=== PATIENT | female | born 1945 | race Caucasian/White ===

== ENCOUNTER 2019-11-25 18:24 | Observation (INO) | payer MEDICARE ==
[2019-11-25] MEDS ORDERED: SODIUM CHLORIDE 0.9% 1,000 ML IV STA (18:28)
--- NOTE | 2019-11-25 18:44 | ED ---
Weakness HPI - General Chief complaint: Weakness Stated complaint: Weakness Time Seen by Provider: 11/25/19 18:27 Source: patient, RN notes reviewed, old records reviewed Mode of arrival: wheelchair Limitations: no limitations - History of Present Illness Initial comments: This is a 74-year-old female DF for evaluation of weakness. Patient is very depressed questioning, states that she is no longer wants to live she syncopal his Lasix sick feeling sick. Patient has not been feeling well for quite some time she blames it on being taken off her Neurontin. MD Complaint: generalized weakness, lack of energy -: days(s) Location: generalized Severity: moderate Severity scale (1-10): 4 Consistency: constant Improves with: none Worsens with: none Context: history of similar, depression Associated Symptoms: denies other symptoms - Related Data Home Medications Medication Instructions Recorded Confirmed Allopurinol [Zyloprim] 100 mg PO BID 11/25/19 11/25/19 Cinacalcet HCl [Sensipar] 30 mg PO DAILY 11/25/19 11/25/19 Ergocalciferol (Vitamin D2) 50,000 unit PO FR 11/25/19 11/25/19 [Drisdol] Garlic 1 tab PO DAILY 11/25/19 11/25/19 Levothyroxine Sodium [Synthroid] 88 mcg PO MOTUWETHFRSA 11/25/19 11/25/19 Linagliptin [Tradjenta] 5 mg PO DAILY 11/25/19 11/25/19 Magnesium Oxide [Magox 400] 400 mg PO DAILY 11/25/19 11/25/19 NIFEdipine [NIFEdipine ER] 60 mg PO DAILY 11/25/19 11/25/19 Pantoprazole [Protonix] 40 mg PO DAILY 11/25/19 11/25/19 Allergies Allergy/AdvReac Type Severity Reaction Status Date / Time acetaminophen Allergy Unknown Verified 11/25/19 20:29 [From Tylenol-Codeine #3] codeine Allergy Unknown Verified 11/25/19 20:29 [From Tylenol-Codeine #3] Review of Systems ROS Statement: Those systems with pertinent positive or pertinent negative responses have been documented in the HPI. ROS Other: All systems not noted in ROS Statement are negative. Past Medical History Past Medical History: Diabetes Mellitus, Hyperlipidemia, Hypertension Additional Past Medical History / Comment(s): parathyroid, gout, osteopenia, diverticulosis Past Surgical History: Appendectomy, Cholecystectomy, Joint Replacement Additional Past Surgical History / Comment(s): L hip, L knee Past Psychological History: No Psychological Hx Reported Smoking Status: Former smoker Past Alcohol Use History: None Reported Past Drug Use History: None Reported General Exam Limitations: no limitations General appearance: alert, in no apparent distress Head exam: Present: atraumatic, normocephalic, normal inspection Eye exam: Present: normal appearance, PERRL, EOMI. Absent: scleral icterus, conjunctival injection, periorbital swelling ENT exam: Present: normal exam, mucous membranes moist Neck exam: Present: normal inspection. Absent: tenderness, meningismus, lymphadenopathy Respiratory exam: Present: normal lung sounds bilaterally. Absent: respiratory distress, wheezes, rales, rhonchi, stridor Cardiovascular Exam: Present: regular rate, normal rhythm, normal heart sounds. Absent: systolic murmur, diastolic murmur, rubs, gallop, clicks GI/Abdominal exam: Present: soft, normal bowel sounds. Absent: distended, tenderness, guarding, rebound, rigid Extremities exam: Present: normal inspection, full ROM, normal capillary refill. Absent: tenderness, pedal edema, joint swelling, calf tenderness Back exam: Present: normal inspection Neurological exam: Present: alert, oriented X3, CN II-XII intact Psychiatric exam: Present: normal affect, normal mood Skin exam: Present: warm, dry, intact, normal color. Absent: rash Course Vital Signs 11/25/19 18:29 Temperature 97.8 F Pulse Rate 68 Respiratory 18 Rate Blood Pressure 184/109 O2 Sat by Pulse 100 Oximetry - Reevaluation(s) Reevaluation #1: 11/25/19 20:35 Medical records reviewed Reevaluation #2: 11/25/19 20:35 Patient informed of findings, family informed questions answered - Consultations Consultation #1: Spoke with sound who agrees to admit EKG Findings - EKG Comments: EKG Findings:: EKG shows sinus bradycardia rate of 59, AR 172 QRS 80 QTC 443 Medical Decision Making - Medical Decision Making 74 female DF for evaluation patient Dese for evaluation regards to abdominal pain dehydration renal failure and suicidal thoughts. Patient will admit for evaluation of above - Lab Data Result diagrams: 11/25/19 19:13 11/25/19 19:13 Lab Results 11/25/19 11/25/19 11/25/19 Range/Units 19:13 19:13 19:13 WBC 6.5 (3.8-10.6) k/uL RBC 4.33 (3.80-5.40) m/uL Hgb 13.0 (11.4-16.0) gm/dL Hct 39.4 (34.0-46.0) % MCV 90.9 (80.0-100.0) fL MCH 30.1 (25.0-35.0) pg MCHC 33.1 (31.0-37.0) g/dL RDW 14.9 (11.5-15.5) % Plt Count 260 (150-450) k/uL Neutrophils % 54 % Lymphocytes % 34 % Monocytes % 7 % Eosinophils % 2 % Basophils % 1 % Neutrophils # 3.5 (1.3-7.7) k/uL Lymphocytes # 2.2 (1.0-4.8) k/uL Monocytes # 0.5 (0-1.0) k/uL Eosinophils # 0.2 (0-0.7) k/uL Basophils # 0.0 (0-0.2) k/uL PT 9.8 (9.0-12.0) sec INR 0.9 (<1.2) APTT 23.2 (22.0-30.0) sec Sodium 137 (137-145) mmol/L Potassium 3.6 (3.5-5.1) mmol/L Chloride 100 (98-107) mmol/L Carbon Dioxide 24 (22-30) mmol/L Anion Gap 13 mmol/L BUN 32 H (7-17) mg/dL Creatinine 2.61 H (0.52-1.04) mg/dL Est GFR (CKD-EPI)AfAm 20 (>60 ml/min/1.73 sqM) Est GFR (CKD-EPI)NonAf 17 (>60 ml/min/1.73 sqM) Glucose 101 H (74-99) mg/dL Plasma Lactic Acid Go (0.7-2.0) mmol/L Calcium 9.4 (8.4-10.2) mg/dL Phosphorus 3.7 (2.5-4.5) mg/dL Magnesium 1.9 (1.6-2.3) mg/dL Total Bilirubin 0.6 (0.2-1.3) mg/dL AST 32 (14-36) U/L ALT 12 (4-34) U/L Alkaline Phosphatase 127 H (38-126) U/L Creatine Kinase 59 (30-135) U/L Troponin I (0.000-0.034) ng/mL NT-Pro-B Natriuret Pep pg/mL Total Protein 8.1 (6.3-8.2) g/dL Albumin 4.5 (3.5-5.0) g/dL TSH 0.961 (0.465-4.680) mIU/L Urine Color Urine Appearance (Clear) Urine pH (5.0-8.0) Ur Specific [place] (1.001-1.035) Urine Protein (Negative) Urine Glucose (UA) (Negative) Urine Ketones (Negative) Urine Blood (Negative) Urine Nitrite (Negative) Urine Bilirubin (Negative) Urine Urobilinogen (<2.0) mg/dL Ur Leukocyte Esterase (Negative) 11/25/19 11/25/19 11/25/19 Range/Units 19:13 19:13 19:13 WBC (3.8-10.6) k/uL RBC (3.80-5.40) m/uL Hgb (11.4-16.0) gm/dL Hct (34.0-46.0) % MCV (80.0-100.0) fL MCH (25.0-35.0) pg MCHC (31.0-37.0) g/dL RDW (11.5-15.5) % Plt Count (150-450) k/uL Neutrophils % % Lymphocytes % % Monocytes % % Eosinophils % % Basophils % % Neutrophils # (1.3-7.7) k/uL Lymphocytes # (1.0-4.8) k/uL Monocytes # (0-1.0) k/uL Eosinophils # (0-0.7) k/uL Basophils # (0-0.2) k/uL PT (9.0-12.0) sec INR (<1.2) APTT (22.0-30.0) sec Sodium (137-145) mmol/L Potassium (3.5-5.1) mmol/L Chloride (98-107) mmol/L Carbon Dioxide (22-30) mmol/L Anion Gap mmol/L BUN (7-17) mg/dL Creatinine (0.52-1.04) mg/dL Est GFR (CKD-EPI)AfAm (>60 ml/min/1.73 sqM) Est GFR (CKD-EPI)NonAf (>60 ml/min/1.73 sqM) Glucose (74-99) mg/dL Plasma Lactic Acid Go 2.4 H* (0.7-2.0) mmol/L Calcium (8.4-10.2) mg/dL Phosphorus (2.5-4.5) mg/dL Magnesium (1.6-2.3) mg/dL Total Bilirubin (0.2-1.3) mg/dL AST (14-36) U/L ALT (4-34) U/L Alkaline Phosphatase (38-126) U/L Creatine Kinase (30-135) U/L Troponin I <0.012 (0.000-0.034) ng/mL NT-Pro-B Natriuret Pep 970 pg/mL Total Protein (6.3-8.2) g/dL Albumin (3.5-5.0) g/dL TSH (0.465-4.680) mIU/L Urine Color Urine Appearance (Clear) Urine pH (5.0-8.0) Ur Specific [place] (1.001-1.035) Urine Protein (Negative) Urine Glucose (UA) (Negative) Urine Ketones (Negative) Urine Blood (Negative) Urine Nitrite (Negative) Urine Bilirubin (Negative) Urine Urobilinogen (<2.0) mg/dL Ur Leukocyte Esterase (Negative) 11/25/19 Range/Units 19:29 WBC (3.8-10.6) k/uL RBC (3.80-5.40) m/uL Hgb (11.4-16.0) gm/dL Hct (34.0-46.0) % MCV (80.0-100.0) fL MCH (25.0-35.0) pg MCHC (31.0-37.0) g/dL RDW (11.5-15.5) % Plt Count (150-450) k/uL Neutrophils % % Lymphocytes % % Monocytes % % Eosinophils % % Basophils % % Neutrophils # (1.3-7.7) k/uL Lymphocytes # (1.0-4.8) k/uL Monocytes # (0-1.0) k/uL Eosinophils # (0-0.7) k/uL Basophils # (0-0.2) k/uL PT (9.0-12.0) sec INR (<1.2) APTT (22.0-30.0) sec Sodium (137-145) mmol/L Potassium (3.5-5.1) mmol/L Chloride (98-107) mmol/L Carbon Dioxide (22-30) mmol/L Anion Gap mmol/L BUN (7-17) mg/dL Creatinine (0.52-1.04) mg/dL Est GFR (CKD-EPI)AfAm (>60 ml/min/1.73 sqM) Est GFR (CKD-EPI)NonAf (>60 ml/min/1.73 sqM) Glucose (74-99) mg/dL Plasma Lactic Acid Go (0.7-2.0) mmol/L Calcium (8.4-10.2) mg/dL Phosphorus (2.5-4.5) mg/dL Magnesium (1.6-2.3) mg/dL Total Bilirubin (0.2-1.3) mg/dL AST (14-36) U/L ALT (4-34) U/L Alkaline Phosphatase (38-126) U/L Creatine Kinase (30-135) U/L Troponin I (0.000-0.034) ng/mL NT-Pro-B Natriuret Pep pg/mL Total Protein (6.3-8.2) g/dL Albumin (3.5-5.0) g/dL TSH (0.465-4.680) mIU/L Urine Color Light Yellow Urine Appearance Clear (Clear) Urine pH 7.5 (5.0-8.0) Ur Specific [place] 1.005 (1.001-1.035) Urine Protein Negative (Negative) Urine Glucose (UA) Negative (Negative) Urine Ketones Negative (Negative) Urine Blood Negative (Negative) Urine Nitrite Negative (Negative) Urine Bilirubin Negative (Negative) Urine Urobilinogen <2.0 (<2.0) mg/dL Ur Leukocyte Esterase Negative (Negative) - Radiology Data Radiology results: report reviewed (CXR is negative for acute disasease), image reviewed Disposition Clinical Impression: Dehydration, ARF (acute renal failure), Weakness, Suicidal ideation Disposition: ADMITTED IP TO THIS HOSP Condition: Fair Is patient prescribed a controlled substance at d/c from ED?: No Referrals: Ubaldo Hankins MD [Primary Care Provider] - 1-2 days
[2019-11-25 19:17] LABS: Basophils % (A) 1 %; Eosinophils # (A) 0.2 k/uL (0-0.7); Eosinophils % (A) 2 %; HCT 39.4 % (34.0-46.0); Lymphocytes # (A) 2.2 k/uL (1.0-4.8); Lymphocytes % (A) 34 %; MCH 30.1 pg (25.0-35.0); MCHC 33.1 g/dL (31.0-37.0); MCV 90.9 fL (80.0-100.0); Mean Platelet Volume 7.4; Monocytes # (A) 0.5 k/uL (0-1.0); Monocytes % (A) 7 %; Neutrophils # (A) 3.5 k/uL (1.3-7.7); Neutrophils % (A) 54 %; Platelet Count 260 k/uL (150-450); RBC 4.33 m/uL (3.80-5.40); RDW 14.9 % (11.5-15.5); WBC 6.5 k/uL (3.8-10.6)
[2019-11-25 19:29] LABS: Albumin 4.5 g/dL (3.5-5.0); Calcium 9.4 mg/dL (8.4-10.2); Magnesium 1.9 mg/dL (1.6-2.3); Phosphorus 3.7 mg/dL (2.5-4.5); Potassium 3.6 mmol/L (3.5-5.1); Total Bilirubin 0.6 mg/dL (0.2-1.3); Total Protein 8.1 g/dL (6.3-8.2)
[2019-11-25 19:37] LABS: INR 0.9 (<1.2); Partial Thromboplastin Time 23.2 sec (22.0-30.0); Prothrombin Time 9.8 sec (9.0-12.0)
--- NOTE | 2019-11-25 20:18 | XR ---
EXAMINATION TYPE: XR chest 2V DATE OF EXAM: 11/25/2019 COMPARISON: None INDICATION: Weakness TECHNIQUE: Frontal and lateral views of the chest are obtained. FINDINGS: The heart size is normal. The pulmonary vasculature is normal. The lungs are clear. IMPRESSION: 1. No acute pulmonary process.
[2019-11-25 20:29] LABS: Appearance,Urine Clear (Clear); Bilirubin,Urine Negative (Negative); Blood,Urine Negative (Negative); Color,Urine Light Yellow; Glucose,Urine (UA) Negative (Negative); Ketones,Urine Negative (Negative); Leukocyte Esterase,Urine Negative (Negative); Nitrite,Urine Negative (Negative); PH, Urine 7.5 (5.0-8.0); Protein,Urine Negative (Negative); Specific Gravity,Urine 1.005 (1.001-1.035); Urobilinogen,Urine <2.0 mg/dL (<2.0)
[2019-11-25] MEDS ORDERED: cefTRIAXone IN SWFI 1,000 MG/10 ML SYRINGE IVP STA (20:31)
--- NOTE | 2019-11-25 23:45 | P.HPIM ---
History of Present Illness H&P Date: 11/25/19 The patient is a 74-year-old female with a PMH of type II DM, hypertension, hyperlipidemia, chronic kidney disease, and peripheral neuropathy presented to the ED with complaints of depression, anorexia, lethargy, and overall feeling ill. The patient notes that she had been on gabapentin for many years though her primary care physician had recently advised her to come off it due to her worsening kidney function. The patient notes that she slowly tapered herself off and her last dose of gabapentin was roughly 1 month ago. She notes however, that since stopping, her mood has worsened significantly, with depressive thoughts, along with poor appetite, abdominal bloating, and feeling fatigued. The patient was tearful during the interview and noted that her depression had gotten to the point where she had felt that she may be better off , though denied any particular plan, and notes that she will never commit suicide since it is against her beliefs. She otherwise denied fever, chills, nausea, vomiting, diarrhea, or abdominal pain. Denied cough, chest pain, shortness of breath. Denied weakness, numbness, tingling, or headaches. In the emergency room, chest x-ray was unremarkable with EKG showing sinus bradycardia. Laboratory evaluation was reviewed with lactic acid 2.4, glucose 101, BUN 32, creatinine 2.61, UA unremarkable, with TSH 0.61. Review of Systems Pertinent positives and negatives as discussed in HPI, a complete review of systems was performed and all other systems are negative. Past Medical History Past Medical History: Diabetes Mellitus, Hyperlipidemia, Hypertension Additional Past Medical History / Comment(s): parathyroid, gout, osteopenia, diverticulosis Past Surgical History: Appendectomy, Cholecystectomy, Joint Replacement Additional Past Surgical History / Comment(s): L hip, L knee Past Psychological History: No Psychological Hx Reported Smoking Status: Former smoker Past Alcohol Use History: None Reported Past Drug Use History: None Reported Medications and Allergies Home Medications Medication Instructions Recorded Confirmed Type Allopurinol [Zyloprim] 100 mg PO BID 11/25/19 11/25/19 History Cinacalcet HCl [Sensipar] 30 mg PO DAILY 11/25/19 11/25/19 History Ergocalciferol (Vitamin D2) 50,000 unit PO FR 11/25/19 11/25/19 History [Drisdol] Garlic 1 tab PO DAILY 11/25/19 11/25/19 History Levothyroxine Sodium [Synthroid] 88 mcg PO MOTUWETHFRSA 11/25/19 11/25/19 History Linagliptin [Tradjenta] 5 mg PO DAILY 11/25/19 11/25/19 History Magnesium Oxide [Magox 400] 400 mg PO DAILY 11/25/19 11/25/19 History NIFEdipine [NIFEdipine ER] 60 mg PO DAILY 11/25/19 11/25/19 History Pantoprazole [Protonix] 40 mg PO DAILY 11/25/19 11/25/19 History Allergies Allergy/AdvReac Type Severity Reaction Status Date / Time acetaminophen Allergy Unknown Verified 11/25/19 20:29 [From Tylenol-Codeine #3] codeine Allergy Unknown Verified 11/25/19 20:29 [From Tylenol-Codeine #3] Physical Exam Vitals: Vital Signs Temp Pulse Resp BP Pulse Ox 11/25/19 20:55 97.9 F 66 18 182/93 100 11/25/19 18:29 97.8 F 68 18 184/109 100 Intake and Output 11/25/19 11/25/19 11/25/19 06:59 14:59 22:59 Other: Weight 70.307 kg General: non toxic, no distress, appears at stated age, normal weight Derm: no unusual rashes/lesions no unusual ecchymoses, warm, dry Head: atraumatic, normocephalic, symmetric Eyes: EOMI, no lid lag, anicteric sclera, pupils equal round reactive to light ENT: Nose and ears atraumatic, no thrush, no pharyngeal erythema Neck: No thyromegaly, no cervical lymphadenopathy, trachea midline, supple Mouth: no lip lesion, mucus membranes moist Cardiovascular: S1S2 reg, no murmur, positive posterior tibial pulse bilateral, no edema, capillary refill less than 2 seconds Lungs: CTA bilateral, no rhonchi, no rales , no accessory muscle use Abdominal: soft, nontender to palpation, no guarding, no appreciable organomegaly, normal bowel sounds Ext: no gross muscle atrophy, muscle strength 4 out of 5 in all 4 extremities grossly, no contractures, Neuro: CN II-XI grossly intact, light touch intact all 4 extremities, finger to nose within normal limits, Psych: Alert, oriented, depressed affect Results CBC & Chem 7: 11/25/19 19:13 11/25/19 19:13 Labs: Abnormal Lab Results - Last 24 Hours (Table) 11/25/19 11/25/19 Range/Units 19:13 19:13 BUN 32 H (7-17) mg/dL Creatinine 2.61 H (0.52-1.04) mg/dL Glucose 101 H (74-99) mg/dL Plasma Lactic Acid Go 2.4 H* (0.7-2.0) mmol/L Alkaline Phosphatase 127 H (38-126) U/L Assessment and Plan Plan: Depression, anorexia, lethargy -Unlikely due to gabapentin withdrawal since stopped for greater than 4 weeks -Psychiatric consult -TSH wnl Chronic kidney disease, unknown baseline -Monitor BMP Lactic acidosis -Likely due to poor oral intake -Monitor to resolution Type II DM -Check A1c -Lispro insulin sliding scale blood glucose monitoring -Hold oral hypoglycemics Chronic conditions: Hypertension, hyperlipidemia -Continue home meds DVT prophylaxis -Heparin subq The patient is admitted with an anticipated less than 2 midnight stay for evaluation of depression CODE STATUS: Full Code Discussed with: Patient, Anticipated discharge date: 11/[address]: Home A total of 35 minutes was spent on the care of this complex patient more than 50% of the time was spent in counseling and care coordination.
[2019-11-26] MEDS: HEPARIN SODIUM,PORCINE 5,000 UNIT/ML 1 ML VIAL SQ SCH ×3 (01:04→18:31)
[2019-11-26] MEDS ORDERED: LEVOTHYROXINE 88 MCG TAB PO SCH (06:30)
[2019-11-26 07:00] LABS: Glucose,Whole Blood 100 mg/dL (75-99)
[2019-11-26] MEDS: INSULIN ASPART (NovoLOG) 100 UNIT/ML VIAL SQ SCH ×3 (09:19→17:36)
[2019-11-26 09:31] LABS: African American GFR (CKD) 27.4 (60.0-200.0); Anion Gap 10.7 mmol/L (4.00-12.00); BUN/Creat Ratio 15.5 Ratio (12.00-20.00); Calcium 9.1 mg/dL (8.7-10.3); Carbon Dioxide 24.3 mmol/L (21.6-31.8); Non-African American GFR(CKD) 23.7 (60.0-200.0); Potassium 3.8 mmol/L (3.5-5.5)
[2019-11-26] MEDS: NIFEdipine XL 30 MG TAB.ER.24 PO SCH (10:10)
[2019-11-26] MEDS: PANTOPRAZOLE 40 MG TABLET PO SCH (10:11)
[2019-11-26 11:42] LABS: Glucose,Whole Blood 103 mg/dL (75-99)
[2019-11-26 13:22] LABS: Hemoglobin A1C 6.4 % (4.0-6.0)
--- NOTE | 2019-11-26 16:35 | P.PN ---
Subjective Progress Note Date: 11/26/19 Patient is still complaining of abdominal bloating and spasm. She denies any nausea or vomiting. She reported having normal bowel movements yesterday. No acute events overnight reported by nursing staff. Objective - Vital Signs Vital signs: Vital Signs Temp 98.7 F 11/26/19 12:42 Pulse 65 11/26/19 12:42 Resp 18 11/26/19 12:42 BP 164/48 11/26/19 12:42 Pulse Ox 99 11/26/19 12:42 Intake & Output 11/25/19 11/26/19 11/26/19 18:59 06:59 18:59 Intake Total 600 Balance 600 Weight 70.307 kg Intake: Oral 600 Other: Voiding Method Toilet Toilet # Voids 2 # Bowel Movements 0 - Exam General: The patient is awake and alert, in no distress Eye: there is normal conjunctiva bilaterally. Neck: The neck is supple, there is no JVD. Cardiovascular: Normal S1-S2, no S3-S4, no murmurs. Respiratory: Lungs clear to auscultation bilaterally Gastrointestinal: Abdomen is soft, nontender Musculoskeletal: There is no pedal edema. Neurological:. Speech is normal. Skin: Skin is warm and dry - Labs CBC & Chem 7: 11/25/19 19:13 11/26/19 04:00 Labs: Abnormal Lab Results - Last 24 Hours (Table) 11/25/19 11/25/19 11/26/19 Range/Units 19:13 19:13 04:00 BUN 32 H (7-17) mg/dL Creatinine 2.61 H (0.52-1.04) mg/dL Est GFR (CKD-EPI)AfAm (60.0-200.0) Est GFR (CKD-EPI)NonAf (60.0-200.0) Glucose 101 H (74-99) mg/dL POC Glucose (mg/dL) (75-99) mg/dL Hemoglobin A1c 6.4 H (4.0-6.0) % Plasma Lactic Acid Go 2.4 H* (0.7-2.0) mmol/L Alkaline Phosphatase 127 H (38-126) U/L 11/26/19 11/26/19 11/26/19 Range/Units 04:00 06:55 11:34 BUN 31.0 H (7-17) mg/dL Creatinine 2.0 H (0.52-1.04) mg/dL Est GFR (CKD-EPI)AfAm 27.4 L (60.0-200.0) Est GFR (CKD-EPI)NonAf 23.7 L (60.0-200.0) Glucose (74-99) mg/dL POC Glucose (mg/dL) 100 H 103 H (75-99) mg/dL Hemoglobin A1c (4.0-6.0) % Plasma Lactic Acid Go (0.7-2.0) mmol/L Alkaline Phosphatase (38-126) U/L Assessment and Plan Assessment: Depression, anorexia, lethargy -Unlikely due to gabapentin withdrawal since stopped for greater than 4 weeks -Psychiatric consult pending -TSH wnl Chronic kidney disease, unknown baseline -Monitor BMP Lactic acidosis -Likely due to poor oral intake -Resolved Type II DM - A1c 6.4 -Lispro insulin sliding scale blood glucose monitoring -Hold oral hypoglycemics Suspected IBS -Bentyl trial 3 times a day Chronic conditions: Hypertension, hyperlipidemia -Continue home meds DVT prophylaxis -Heparin subq
[2019-11-26 17:32] LABS: Glucose,Whole Blood 104 mg/dL (75-99)
--- NOTE | 2019-11-26 17:42 | P.CN ---
Psychiatric Consult - . Consult date: 11/26/19 Consult:: 11/26/19 17:32 ID this is a case of a 74-year-old female who is under a lot of stress and complaining of some depression. The question is she a danger to himself or others and that she needed medication for depression Subjective: The report is that the patient was feeling somewhat hopeless and talking about life not being worth living the way he currently is. The patient does tend to go round around on how due to Covid 19 she is cut off from external support. In addition her has always been deaf in the left ear and lately has not wanted to wear his hearing aid and is almost deaf in his right ear. This leaves her feeling very isolated she does not feel good support from all of her children, besides they have busy lives to live. She admits to going round around on the thing she worries about that she can do nothing about in regards to her children and grandchildren in the world. She is taken to not watching TV because she soaks and all of the political and world problems. She denies any difficulty with focus and memory were basic motivation. She says her problem is being anxious and not being able leg go that and not being able to give herself credit and see the positives. She has also lost some friends and feels that her support system and shrinking due to her age. . She denies a previous history of depression counseling or treatment. She has a son who is gone to counseling and found it beneficial and has been suggesting she may want to do the same. She denies other family history of depression. Her dad had a lot of trouble with hearing and she sees her life replaying the difficulties of parents had at the end of their life. Her medical problems complicate the situation she has peripheral neuropathy which makes it hard for her to walk steadily or for very long. And she has chronic kidney problems. Mental status exam: The patient is alert cooperative good eye contact. She is tired and had trouble sitting up in bed. Response times were reasonable. She talks softly and energy is definitely low. She denies any psychotic symptoms. No evidence of responding to voices or delusions. She denies any suicidality now or in the past just some discouragement. She denies any desire to hurt anybody else. Her memory is fine negative or 3 things to remember blue [place] she could repeat all of them 5 minutes later. General information is slightly impaired but average: She could name 3 of the [place] and forgot [place] so that simply a matter of recall and she got Ren Mosher was a great [place] which is [place]. She could name the last 5 presidents in a row. She could subtract 7 from 93 and get 86. She could spell world backward. So her concentration is adequate. When asked how cats and snakes are alike she said they're sneaky and they like mice and they hiss. So her abstract ability is good. Her vocabulary is good and she could understand ideas and even had a good sense of humor. Assessment: 1. She definitely needs to go to counseling and I think could benefit from it as she is able to understand ideas remember them and respond to them. 2. 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 Nothing severe but I think it would be worthwhile to consider low-dose Cymbalta 20-40 mg each morning. This is something she might want to talk to her outpatient doctor about. 3. I do not think she is a danger to herself or others.
[2019-11-26] MEDS: DICYCLOMINE 10 MG CAP PO SCH ×2 (18:29→21:24)
[2019-11-26 21:15] LABS: Glucose,Whole Blood 98 mg/dL (75-99)
[2019-11-27] MEDS: HEPARIN SODIUM,PORCINE 5,000 UNIT/ML 1 ML VIAL SQ SCH ×2 (00:54→08:42)
[2019-11-27 06:14] LABS: Basophils % (A) 1 %; Eosinophils # (A) 0.2 k/uL (0-0.7); Eosinophils % (A) 4 %; HCT 33.9 % (34.0-46.0); HGB 10.6 gm/dL (11.4-16.0); Lymphocytes # (A) 1.6 k/uL (1.0-4.8); Lymphocytes % (A) 38 %; MCH 28.5 pg (25.0-35.0); MCHC 31.3 g/dL (31.0-37.0); Mean Platelet Volume 7.3; Monocytes # (A) 0.3 k/uL (0-1.0); Monocytes % (A) 7 %; Neutrophils % (A) 47 %; Platelet Count 189 k/uL (150-450); RBC 3.72 m/uL (3.80-5.40); RDW 14.7 % (11.5-15.5); WBC 4.2 k/uL (3.8-10.6)
[2019-11-27 07:34] LABS: Glucose,Whole Blood 97 mg/dL (75-99)
[2019-11-27] MEDS: INSULIN ASPART (NovoLOG) 100 UNIT/ML VIAL SQ SCH (07:37)
[2019-11-27] MEDS: PANTOPRAZOLE 40 MG TABLET PO SCH (08:42)
[2019-11-27] MEDS: DICYCLOMINE 10 MG CAP PO SCH (08:42)
[2019-11-27 08:50] VITALS: BP 138/79; PULSE 62; RESP 16; TEMP 98.9
[2019-11-27] MEDS: NIFEdipine XL 30 MG TAB.ER.24 PO SCH (08:50)
[2019-11-27 09:41] LABS: African American GFR (CKD) 25.8 (60.0-200.0); Anion Gap 9.6 mmol/L (4.00-12.00); BUN/Creat Ratio 15.24 Ratio (12.00-20.00); Calcium 9.5 mg/dL (8.7-10.3); Carbon Dioxide 26.4 mmol/L (21.6-31.8); Non-African American GFR(CKD) 22.3 (60.0-200.0); Potassium 4.3 mmol/L (3.5-5.5)
--- NOTE | 2019-11-27 10:18 | P.DS ---
Providers Date of admission: 11/25/19 20:31 Expected date of discharge: 11/27/19 Attending physician: lIa Melgar MD Consults: 11/25/19 20:31 Consult Physician Routine Consulting Provider: Julia Westbrook Consult Reason/Comments: suicide Do you want consulting provider notified?: Yes Primary care physician: Ubaldo Rost. [facility] Hospital Course: This is a 74-year-old female with past medical history noted below presented to the hospital with worsening depression and anxiety being unable to take care of her anymore. Patient was evaluated in the ER and admitted to the [facility] for further management of her medical problems noted below. 1. Worsening depression: Seen and evaluated by psychiatry. No inpatient hospitalization required at this time. Start Cymbalta 20 mg daily. Follow up with outpatient counseling. Counseled regarding coping strategy with taking care of her who is now struggling with dementia. 2. Suspected IBS, given a trial of Bentyl with good relief of her symptoms. 3. Chronic medical problems: Essential hypertension, type 2 diabetes, chronic kidney disease, peripheral neuropathy, all stable continue home medications Patient will be discharged home in a stable condition. For further details about this hospitalization please refer to the electronic chart. Patient Condition at Discharge: Stable Plan - Discharge Summary New Discharge Prescriptions: New Dicyclomine [Bentyl] 10 mg PO TID PRN #30 cap PRN Reason: Bloating DULoxetine HCL [Cymbalta] 20 mg PO DAILY #30 capsule.dr Continue Garlic 1 tab PO DAILY Pantoprazole [Protonix] 40 mg PO DAILY Linagliptin [Tradjenta] 5 mg PO DAILY Ergocalciferol (Vitamin D2) [Drisdol] 50,000 unit PO FR NIFEdipine [NIFEdipine ER] 60 mg PO DAILY Levothyroxine Sodium [Synthroid] 88 mcg PO MOTUWETHFRSA Cinacalcet HCl [Sensipar] 30 mg PO DAILY Allopurinol [Zyloprim] 100 mg PO BID Magnesium Oxide [Magox 400] 400 mg PO DAILY Discharge Medication List Allopurinol [Zyloprim] 100 mg PO BID 11/25/19 [History] Cinacalcet HCl [Sensipar] 30 mg PO DAILY 11/25/19 [History] Ergocalciferol (Vitamin D2) [Drisdol] 50,000 unit PO FR 11/25/19 [History] Garlic 1 tab PO DAILY 11/25/19 [History] Levothyroxine Sodium [Synthroid] 88 mcg PO MOTUWETHFRSA 11/25/19 [History] Linagliptin [Tradjenta] 5 mg PO DAILY 11/25/19 [History] Magnesium Oxide [Magox 400] 400 mg PO DAILY 11/25/19 [History] NIFEdipine [NIFEdipine ER] 60 mg PO DAILY 11/25/19 [History] Pantoprazole [Protonix] 40 mg PO DAILY 11/25/19 [History] DULoxetine HCL [Cymbalta] 20 mg PO DAILY #30 capsule. 11/27/19 [Rx] Dicyclomine [Bentyl] 10 mg PO TID PRN #30 cap 11/27/19 [Rx] Follow up Appointment(s)/Referral(s): Ubaldo Hankins MD [Primary Care Provider] - 1-2 days Patient Instructions/Handouts: Dicyclomine (By mouth) Discharge Disposition: HOME SELF-CARE
== END 2019-11-27 13:45 | disposition home or self-care (01) ==
LOC: EC 18:24 → 5NMEDONC 20:31 → 6NMEDSUR 22:34
PROVIDERS: ADMIT Internal Medicine; ATTEND Internal Medicine
DX: E86.0 Dehydration (principal); R45.851 Suicidal ideations; R53.1 Weakness; I12.9 Hypertensive chronic kidney disease with stage 1 through stage 4 chronic kidney disease, or unspecified chronic kidney disease; E11.22 Type 2 diabetes mellitus with diabetic chronic kidney disease; N18.9 Chronic kidney disease, unspecified; N17.9 Acute kidney failure, unspecified; E87.2 Acidosis; E11.42 Type 2 diabetes mellitus with diabetic polyneuropathy; F32.9 Major depressive disorder, single episode, unspecified; R63.0 Anorexia; R53.83 Other fatigue; R00.1 Bradycardia, unspecified; F41.9 Anxiety disorder, unspecified; I10 Essential (primary) hypertension; M10.9 Gout, unspecified; M85.80 Other specified disorders of bone density and structure, unspecified site; K57.90 Diverticulosis of intestine, part unspecified, without perforation or abscess without bleeding; E78.5 Hyperlipidemia, unspecified; Z87.891 Personal history of nicotine dependence; Z90.49 Acquired absence of other specified parts of digestive tract; Z96.642 Presence of left artificial hip joint; Z98.890 Other specified postprocedural states; R14.0 Abdominal distension (gaseous); R25.2 Cramp and spasm; Z79.890 Hormone replacement therapy; Z79.899 Other long term (current) drug therapy; Z79.84 Long term (current) use of oral hypoglycemic drugs; Z88.6 Allergy status to analgesic agent; Z88.5 Allergy status to narcotic agent
CPT/HCPCS: 96361 ×2; 96372 ×2; 82075; 96360; 99285; 36415; 93005; 83880; 80053; 80048 ×2; 82550; 83605; 83735; 84100; 84443; 84484; 85025 ×2; 85610; 85730; 81003; 83036; 71046; G0378 ×2; J1644 ×2

== ENCOUNTER 2020-05-28 20:06 | Emergency (ER) | payer MEDICARE ==
[2020-05-28] MEDS ORDERED: SODIUM CHLORIDE 0.9% 500 ML 500 ML IV STA (20:27)
--- NOTE | 2020-05-28 20:33 | ED ---
Weakness HPI - General Stated complaint: Weakness Time Seen by Provider: 05/28/20 20:23 Source: patient, EMS, RN notes reviewed Mode of arrival: EMS Limitations: no limitations - History of Present Illness Initial comments: 74-year-old white female presents to the emergency room with complaints of dizziness and nausea and vomiting that started at approximately 2:00 this afternoon. Patient was recently at primary care doctor's office a week ago and told she has a right ear infection on put on antibiotics. Patient states pain was also in the right side of her neck and they prescribed her baclofen as a muscle relaxer. Patient states that she feels a pressure in her head and is worse when she is bending over and resolves when she lays down. Patient denies fever, denies diarrhea, denies cough or chest pain at this time. Patient states received her second Covid shot last Thursday. Patient also tearful stating has stage IV cancer and has dementia and is overwhelmed as caregiver at home. MD Complaint: generalized weakness -: hour(s) (4) Location: generalized Improves with: rest Worsens with: movement Context: recent illness (right ear infection) Associated Symptoms: nausea/vomiting (dizziness) - Related Data Home Medications Medication Instructions Recorded Confirmed Allopurinol [Zyloprim] 100 mg PO DAILY 11/25/19 05/28/20 Cinacalcet HCl [Sensipar] 30 mg PO HS 11/25/19 05/28/20 Ergocalciferol (Vitamin D2) 50,000 unit PO FR 11/25/19 05/28/20 [Drisdol (50,000 Iu)] Garlic 1 tab PO HS 11/25/19 05/28/20 Levothyroxine Sodium [Synthroid] 88 mcg PO MOTUWETHFRSA 11/25/19 05/28/20 Linagliptin [Tradjenta] 5 mg PO DAILY 11/25/19 05/28/20 NIFEdipine [NIFEdipine ER] 60 mg PO DAILY 11/25/19 05/28/20 Pantoprazole [Protonix] 40 mg PO DAILY 11/25/19 05/28/20 Baclofen 5 - 10 mg PO HS PRN 05/28/20 05/28/20 Fluticasone Nasal [place] [Flonase 1 spray EA NOSTRIL DAILY 05/28/20 05/28/20 Nasal [place]] Repaglinide 0.5 mg PO TID 05/28/20 05/28/20 metFORMIN HCL [Glucophage] 500 mg PO TID 05/28/20 05/28/20 Allergies Allergy/AdvReac Type Severity Reaction Status Date / Time acetaminophen Allergy Unknown Verified 05/28/20 22:13 [From Tylenol-Codeine #3] codeine Allergy Unknown Verified 05/28/20 22:13 [From Tylenol-Codeine #3] Review of Systems ROS Statement: Those systems with pertinent positive or pertinent negative responses have been documented in the HPI. ROS Other: All systems not noted in ROS Statement are negative. Past Medical History Past Medical History: Diabetes Mellitus, Hyperlipidemia, Hypertension Additional Past Medical History / Comment(s): parathyroid, gout, osteopenia, diverticulosis History of Any Multi-Drug Resistant Organisms: None Reported Past Surgical History: Appendectomy, Cholecystectomy, Joint Replacement Additional Past Surgical History / Comment(s): L hip, L knee Past Anesthesia/Blood Transfusion Reactions: No Reported Reaction Past Psychological History: No Psychological Hx Reported Smoking Status: Former smoker Past Alcohol Use History: None Reported Past Drug Use History: None Reported - Past Family History Father Family Medical History: Myocardial Infarction (DC) Mother Family Medical History: Diabetes Mellitus Additional Family Medical History / Comment(s): Patient says mom, five siblings had diabetes and of heart issues General Exam General appearance: alert, in no apparent distress Head exam: Present: atraumatic, normocephalic, normal inspection Eye exam: Present: normal appearance, PERRL, EOMI. Absent: scleral icterus, conjunctival injection, periorbital swelling Pupils: Present: normal accommodation ENT exam: Present: normal exam, mucous membranes moist Neck exam: Present: normal inspection, full ROM. Absent: tenderness, meningismus, lymphadenopathy Respiratory exam: Present: normal lung sounds bilaterally. Absent: respiratory distress, wheezes, rales, rhonchi, stridor Cardiovascular Exam: Present: regular rate. Absent: clicks, JVD GI/Abdominal exam: Present: soft, normal bowel sounds. Absent: distended, ten derness, guarding, rebound, rigid Neurological exam: Present: alert, oriented X3, CN II-XII intact Expanded Neurological exam: Present: tremor (right arm chronic) Patient oriented to: Present: person, place, time Speech: Present: fluid speech Cranial nerves: EOM's Intact: Normal, Gag Reflex: Normal, Tongue Deviation: Normal, Facial Sensation: Normal, Facial Palsy with Forehead Movement: Normal, Facial Palsy without Forehead Movement: Normal Cerebellar function: Finger to Nose: Normal, Heel to [place]: Normal Upper motor neuron: Osbaldo Neglect: Normal, Pronator Drift: Normal Motor strength exam: RUE: 5, LUE: 5, RLE: 4, LLE: 4 Eye Response: (4) open spontaneously Motor Response: (6) obeys commands Verbal Response: (5) oriented Psychiatric exam: Present: normal affect, normal mood, other (tearful) Skin exam: Present: warm, dry, intact, normal color. Absent: rash Course Vital Signs 05/28/20 20:28 Pulse Rate 97 Respiratory 18 Rate Blood Pressure 177/111 O2 Sat by Pulse 100 Oximetry EKG Findings - EKG Results: EKG: interpreted by ERIC (Ventricular rate of 92, AL interval of 0.18, QRS of 0.86, QTC of 0.511ms, EKG compared to one done in November 2019 showed QTC of 0.443ms) Medical Decision Making - Medical Decision Making Case discussed with Dr. Calderón, blood pressure 166/95 heart rate 92 CBC within normal limits, creatinine 2.16 consistent with labs drawn in November 2019, alk phos 135, November 2019 was 127. CTA negative for intracranial bleed, mild cerebral atrophy. Chest x-ray negative for infiltrates, masses, or heart failure. right TM red and currently being treated with antibiotics erythromycin. Patient tearful, overwhelmed with concern about 's health care, but agreeable to going home and following up with her primary care doctor this week. - Lab Data Result diagrams: 05/28/20 20:50 05/28/20 20:50 Lab Results 05/28/20 05/28/20 05/28/20 Range/Units 20:50 20:50 20:50 WBC 7.0 (3.8-10.6) k/uL RBC 3.95 (3.80-5.40) m/uL Hgb 12.0 (11.4-16.0) gm/dL Hct 34.9 (34.0-46.0) % MCV 88.3 (80.0-100.0) fL MCH 30.3 (25.0-35.0) pg MCHC 34.3 (31.0-37.0) g/dL RDW 15.3 (11.5-15.5) % Plt Count 241 (150-450) k/uL MPV 6.7 Neutrophils % 70 % Lymphocytes % 20 % Monocytes % 6 % Eosinophils % 1 % Basophils % 1 % Neutrophils # 4.9 (1.3-7.7) k/uL Lymphocytes # 1.4 (1.0-4.8) k/uL Monocytes # 0.4 (0-1.0) k/uL Eosinophils # 0.1 (0-0.7) k/uL Basophils # 0.1 (0-0.2) k/uL PT 10.2 (9.0-12.0) sec INR 0.9 (<1.2) APTT 23.5 (22.0-30.0) sec Sodium 134 L (137-145) mmol/L Potassium 3.9 (3.5-5.1) mmol/L Chloride 99 (98-107) mmol/L Carbon Dioxide 24 (22-30) mmol/L Anion Gap 11 mmol/L BUN 40 H (7-17) mg/dL Creatinine 2.06 H (0.52-1.04) mg/dL Est GFR (CKD-EPI)AfAm 26 (>60 ml/min/1.73 sqM) Est GFR (CKD-EPI)NonAf 23 (>60 ml/min/1.73 sqM) Glucose 138 H (74-99) mg/dL Plasma Lactic Acid Go (0.7-2.0) mmol/L Calcium 8.9 (8.4-10.2) mg/dL Total Bilirubin 0.8 (0.2-1.3) mg/dL AST 31 (14-36) U/L ALT 8 (4-34) U/L Alkaline Phosphatase 135 H (38-126) U/L Troponin I (0.000-0.034) ng/mL Total Protein 8.3 H (6.3-8.2) g/dL Albumin 4.5 (3.5-5.0) g/dL Urine Color Urine Appearance (Clear) Urine pH (5.0-8.0) Ur Specific [place] (1.001-1.035) Urine Protein (Negative) Urine Glucose (UA) (Negative) Urine Ketones (Negative) Urine Blood (Negative) Urine Nitrite (Negative) Urine Bilirubin (Negative) Urine Urobilinogen (<2.0) mg/dL Ur Leukocyte Esterase (Negative) Urine WBC (0-5) /hpf Ur Squamous Epith Cells (0-4) /hpf Amorphous Sediment (None) /hpf Urine Bacteria (None) /hpf Urine Mucus (None) /hpf 05/28/20 05/28/20 05/28/20 Range/Units 20:50 20:50 21:38 WBC (3.8-10.6) k/uL RBC (3.80-5.40) m/uL Hgb (11.4-16.0) gm/dL Hct (34.0-46.0) % MCV (80.0-100.0) fL MCH (25.0-35.0) pg MCHC (31.0-37.0) g/dL RDW (11.5-15.5) % Plt Count (150-450) k/uL MPV Neutrophils % % Lymphocytes % % Monocytes % % Eosinophils % % Basophils % % Neutrophils # (1.3-7.7) k/uL Lymphocytes # (1.0-4.8) k/uL Monocytes # (0-1.0) k/uL Eosinophils # (0-0.7) k/uL Basophils # (0-0.2) k/uL PT (9.0-12.0) sec INR (<1.2) APTT (22.0-30.0) sec Sodium (137-145) mmol/L Potassium (3.5-5.1) mmol/L Chloride (98-107) mmol/L Carbon Dioxide (22-30) mmol/L Anion Gap mmol/L BUN (7-17) mg/dL Creatinine (0.52-1.04) mg/dL Est GFR (CKD-EPI)AfAm (>60 ml/min/1.73 sqM) Est GFR (CKD-EPI)NonAf (>60 ml/min/1.73 sqM) Glucose (74-99) mg/dL Plasma Lactic Acid Go 0.9 (0.7-2.0) mmol/L Calcium (8.4-10.2) mg/dL Total Bilirubin (0.2-1.3) mg/dL AST (14-36) U/L ALT (4-34) U/L Alkaline Phosphatase (38-126) U/L Troponin I <0.012 (0.000-0.034) ng/mL Total Protein (6.3-8.2) g/dL Albumin (3.5-5.0) g/dL Urine Color Colorless Urine Appearance Clear (Clear) Urine pH 7.0 (5.0-8.0) Ur Specific [place] 1.005 (1.001-1.035) Urine Protein 1+ H (Negative) Urine Glucose (UA) Negative (Negative) Urine Ketones Negative (Negative) Urine Blood Trace H (Negative) Urine Nitrite Negative (Negative) Urine Bilirubin Negative (Negative) Urine Urobilinogen <2.0 (<2.0) mg/dL Ur Leukocyte Esterase Negative (Negative) Urine WBC 1 (0-5) /hpf Ur Squamous Epith Cells 1 (0-4) /hpf Amorphous Sediment Rare H (None) /hpf Urine Bacteria Rare H (None) /hpf Urine Mucus Rare H (None) /hpf Disposition Clinical Impression: Weakness Clinical Impression: (Ruled Out): Acute otitis media Disposition: HOME SELF-CARE Condition: Fair Instructions (If sedation given, give patient instructions): Weakness (ED), Acute Nausea and Vomiting (ED) Additional Instructions: Continue the medication as prescribed for the ear infection by her primary care doctor. Contact your doctor this week for follow-up. Try melatonin [id number] to help with sleep. Increase your fluid intake and get rest. Is patient prescribed a controlled substance at d/c from ED?: No Referrals: Ubaldo Hankins MD [Primary Care Provider] - 1-2 days Time of Disposition: 22:45
[2020-05-28 21:14] LABS: Basophils # (A) 0.1 k/uL (0-0.2); Basophils % (A) 1 %; Eosinophils # (A) 0.1 k/uL (0-0.7); Eosinophils % (A) 1 %; HCT 34.9 % (34.0-46.0); Lymphocytes # (A) 1.4 k/uL (1.0-4.8); Lymphocytes % (A) 20 %; MCH 30.3 pg (25.0-35.0); MCHC 34.3 g/dL (31.0-37.0); MCV 88.3 fL (80.0-100.0); Mean Platelet Volume 6.7; Monocytes # (A) 0.4 k/uL (0-1.0); Monocytes % (A) 6 %; Neutrophils # (A) 4.9 k/uL (1.3-7.7); Neutrophils % (A) 70 %; Platelet Count 241 k/uL (150-450); RBC 3.95 m/uL (3.80-5.40); RDW 15.3 % (11.5-15.5)
[2020-05-28 21:23] LABS: Albumin 4.5 g/dL (3.5-5.0); Calcium 8.9 mg/dL (8.4-10.2); Potassium 3.9 mmol/L (3.5-5.1); Total Bilirubin 0.8 mg/dL (0.2-1.3); Total Protein 8.3 g/dL (6.3-8.2)
[2020-05-28 21:34] LABS: INR 0.9 (<1.2); Partial Thromboplastin Time 23.5 sec (22.0-30.0); Prothrombin Time 10.2 sec (9.0-12.0)
--- NOTE | 2020-05-28 21:36 | CT ---
EXAMINATION TYPE: CT brain wo con DATE OF EXAM: 05/28/2020 COMPARISON: None HISTORY: weak ness CT DLP: 1025.4 mGycm Automated exposure control for dose reduction was used. There is mild cerebral atrophy. There is no mass effect nor midline shift. There is no sign of intrac ranial hemorrhage. There is some mild hypodensity in the periventricular white matter. The calvarium is intact. Skull base is intact. IMPRESSION: There is mild cerebral atrophy. No acute intracranial abnormality. Mild chronic small vessel ischemia .
--- NOTE | 2020-05-28 21:37 | XR ---
EXAMINATION TYPE: XR chest 2V DATE OF EXAM: 05/28/2020 COMPARISON: NONE HISTORY: Weakness. Nausea and vomiting. TECHNIQUE: 2 views FINDINGS: There is no heart failure nor confluent pneumonic infiltrate. Costophrenic angles are clear . There are no hilar masses. Thoracic aorta is atheromatous. IMPRESSION: No active cardiopulmonary disease. No change.
[2020-05-28 22:02] LABS: Amorphous Sediment,Urine Rare /hpf; Appearance,Urine Clear (Clear); Bacteria,Urine Rare /hpf; Bilirubin,Urine Negative (Negative); Blood,Urine Trace (Negative); Color,Urine Colorless; Glucose,Urine (UA) Negative (Negative); Ketones,Urine Negative (Negative); Leukocyte Esterase,Urine Negative (Negative); Mucus,Urine Rare /hpf; Nitrite,Urine Negative (Negative); Protein,Urine 1+ (Negative); Specific Gravity,Urine 1.005 (1.001-1.035); Squamous Epithelial Cell,Urine 1 /hpf (0-4); Urobilinogen,Urine <2.0 mg/dL (<2.0); WBC,Urine 1 /hpf (0-5)
[2020-05-28 23:17] VITALS: BP 127/87; PULSE 80; RESP 15
== END 2020-05-28 23:18 | disposition home or self-care (01) ==
LOC: EC 20:06
DX: R53.1 Weakness (principal); R42 Dizziness and giddiness; R11.2 Nausea with vomiting, unspecified; I10 Essential (primary) hypertension; E78.5 Hyperlipidemia, unspecified; E11.9 Type 2 diabetes mellitus without complications; Z87.891 Personal history of nicotine dependence; Z79.84 Long term (current) use of oral hypoglycemic drugs
CPT/HCPCS: 36415; 70450; 71046; 80053; 81001; 83605; 84484; 85025; 85610; 85730; 93005; 99285

== ENCOUNTER 2023-07-25 22:03 | Emergency (ER) | payer MEDICARE ==
[2023-07-25] MEDS: SODIUM CHLORIDE 0.9% 500 ML 500 ML IV STA (22:43)
[2023-07-25] MEDS: PANTOPRAZOLE 40 MG/10 ML VIAL IVP STA (22:43)
[2023-07-25] MEDS: ONDANSETRON 4 MG/2 ML VIAL IVP STA (22:45)
[2023-07-25 22:48] LABS: Anisocytosis Slight; Basophils % (A) 1 %; Eosinophils # (A) 0.2 k/uL (0-0.7); Eosinophils % (A) 3 %; HGB 7.5 gm/dL (11.4-16.0); Lymphocytes % (A) 36 %; MCH 31.1 pg (25.0-35.0); MCHC 31.1 g/dL (31.0-37.0); MCV 100.1 fL (80.0-100.0); Macrocytosis Slight; Mean Platelet Volume 8.2; Monocytes # (A) 0.4 k/uL (0-1.0); Monocytes % (A) 8 %; Neutrophils # (A) 2.7 k/uL (1.3-7.7); Neutrophils % (A) 50 %; Platelet Count 163 k/uL (150-450); RBC 2.39 m/uL (3.80-5.40); RDW 16.1 % (11.5-15.5); WBC 5.5 k/uL (3.8-10.6)
[2023-07-25 23:03] LABS: Partial Thromboplastin Time 22.6 sec (22.0-30.0); Prothrombin Time 11.1 sec (10.0-12.5)
[2023-07-25 23:07] LABS: ALT 17 U/L (4-34); AST 37 U/L (14-36); African American GFR (CKD) 26 (>60 ml/min/1.73 sqM); Albumin 2.9 g/dL (3.5-5.0); Alkaline Phosphatase 154 U/L (38-126); Anion Gap 7 mmol/L; Blood Urea Nitrogen 48 mg/dL (7-17); Calcium 8.6 mg/dL (8.4-10.2); Carbon Dioxide 19 mmol/L (22-30); Chloride 110 mmol/L (98-107); Glucose 114 mg/dL (74-99); Non-African American GFR(CKD) 23 (>60 ml/min/1.73 sqM); Sodium 136 mmol/L (137-145); Total Bilirubin 0.7 mg/dL (0.2-1.3); Total Protein 5.9 g/dL (6.3-8.2)
--- NOTE | 2023-07-25 23:21 | ED ---
General Adult HPI - General Chief complaint: Nausea/Vomiting/Diarrhea Stated complaint: Nausea Time Seen by Provider: 07/25/23 22:08 Source: patient, EMS Mode of arrival: EMS - History of Present Illness Initial comments: Madonna is a pleasant 77-year-old female who presents to the ER today for evaluation of vomiting of bright red blood. Patient reports that she was hospitalized in November at [facility] for hematemesis and melena. Patient underwent endoscopy which was nondiagnostic. She was subsequently discharged home and did well for a number of months. She was again admitted last month with hematemesis and acute blood loss anemia requiring transfusion of 2 notes of packed red blood cells. Patient again underwent endoscopy which was nondiagnostic and was subsequently discharged home. Patient is taking PPIs. She does not take any NSAIDs or steroids. She is not on any anticoagulation. She has been feeling nauseated throughout the day today and this evening had an episode of hematemesis vomiting bright red blood. Patient states she feels weak nauseated and unwell. - Related Data Home Medications Medication Instructions Recorded Confirmed Cinacalcet HCl [Sensipar] 30 mg PO HS 11/25/19 05/28/20 Ergocalciferol (Vitamin D2) 50,000 unit PO FR 11/25/19 05/28/20 [Drisdol (50,000 Iu)] Garlic 1 tab PO HS 11/25/19 05/28/20 Levothyroxine Sodium [Synthroid] 88 mcg PO [id number] 11/25/19 05/28/20 Linagliptin [Tradjenta] 5 mg PO DAILY 11/25/19 05/28/20 NIFEdipine [Adalat CC] 60 mg PO DAILY 11/25/19 05/28/20 Pantoprazole [Protonix] 40 mg PO DAILY 11/25/19 05/28/20 allopurinoL [Zyloprim] 100 mg PO DAILY 11/25/19 05/28/20 Baclofen 5 - 10 mg PO HS PRN 05/28/20 05/28/20 Fluticasone Nasal [place] [Flonase 1 spray EA NOSTRIL DAILY 05/28/20 05/28/20 Nasal [place]] Repaglinide 0.5 mg PO TID 05/28/20 05/28/20 metFORMIN HCL [Glucophage] 500 mg PO TID 05/28/20 05/28/20 Allergies Allergy/AdvReac Type Severity Reaction Status Date / Time acetaminophen Allergy Unknown Verified 05/28/20 22:13 [From Tylenol-Codeine #3] codeine Allergy Unknown Verified 05/28/20 22:13 [From Tylenol-Codeine #3] Review of Systems ROS Statement: Those systems with pertinent positive or pertinent negative responses have been documented in the HPI. ROS Other: All systems not noted in ROS Statement are negative. Past Medical History Past Medical History: Diabetes Mellitus, Hyperlipidemia, Hypertension Additional Past Medical History / Comment(s): parathyroid, gout, osteopenia, diverticulosis History of Any Multi-Drug Resistant Organisms: None Reported Past Surgical History: Appendectomy, Cholecystectomy, Joint Replacement Additional Past Surgical History / Comment(s): L hip, L knee Past Anesthesia/Blood Transfusion Reactions: No Reported Reaction Past Psychological History: No Psychological Hx Reported Smoking Status: Former smoker Past Alcohol Use History: None Reported Past Drug Use History: None Reported - Past Family History Father Family Medical History: Myocardial Infarction (MT) Mother Family Medical History: Diabetes Mellitus Additional Family Medical History / Comment(s): Patient says mom, five siblings had diabetes and of heart issues General Exam - General Exam Comments Initial Comments: Physical Exam GENERAL: Patient is well-developed and well-nourished. Patient is nontoxic and well- hydrated and is in no distress. HENT: Normocephalic, Atraumatic. EYES: PERRL, EOMI Conjunctival pallor PULMONARY: Unlabored respirations. No audible rales rhonchi or wheezing was noted. CARDIOVASCULAR: There is a regular rate and rhythm without any murmurs gallops or rubs. ABDOMEN: Soft and nontender with normal bowel sounds. SKIN: Is pale : Deferred NEUROLOGIC: Patient is alert and oriented x3. Moving all extremities spontaneously MUSCULOSKELETAL: Normal extremities with adequate strength and full range of motion. No lower extremity swelling or edema. No calf tenderness. PSYCHIATRIC: Normal psychiatric evaluation. Course Vital Signs 07/25/23 07/26/23 07/26/23 22:23 00:15 00:43 Temperature 98.3 F Pulse Rate 89 89 75 Respiratory 19 17 17 Rate Blood Pressure 142/73 118/76 137/74 O2 Sat by Pulse 100 98 98 Oximetry 07/26/23 07/26/23 07/26/23 01:00 01:20 01:56 Temperature 98.3 F 98.3 F 98.2 F Pulse Rate 79 77 Respiratory 17 17 Rate Blood Pressure 132/73 135/75 O2 Sat by Pulse 97 97 Oximetry 07/26/23 07/26/23 07/26/23 02:32 02:34 02:49 Temperature 98.4 F 98.2 F 98.2 F Pulse Rate 74 70 79 Respiratory 17 17 17 Rate Blood Pressure 130/61 131/64 121/66 O2 Sat by Pulse 97 97 95 Oximetry Medical Decision Making - Medical Decision Making Patient was seen and evaluated immediately upon [facility]. Patient is hemodynamically stable but appears quite pale and diaphoretic. Patient had an episode of hematemesis at home. Labs, IV Protonix and Zofran were ordered. Patient is nonalcoholic no history of esophageal varices. Patient's lab resulted with recurrent anemia hemoglobin 7.5 however considering that she vomited bright red blood can be assumed she has an active bleed and we will order transfusion. We do not have GI specialist here therefore I would recommend transfer. Patient would like to be transferred back to [facility] for continuity of care as she has been scoped there twice in the past year. Patient care was discussed with the ER physician Dr. Lal who accepts the transfer, blood has been ordered and typed and crossed here therefore we will initiate transfusion prior to transfer. Was pt. sent in by a medical professional or institution (, PA, WINDER HELPER, urgent care, hospital, or assisted...) When possible be specific @ -No Did you speak to anyone other than the patient for history (EMS, parent, family, police, friend...)? What history was obtained from this source @ -Son and Did you review nursing and triage notes (agree or disagree)? Why? @ -I reviewed and agree with nursing and triage notes Were old charts reviewed (outside hosp., previous admission, EMS record, old EKG, old radiological studies, urgent care reports/EKG's, assisted records)? Report findings @ -Previous labs here were reviewed Differential Diagnosis (chest pain, altered mental status, abdominal pain women, abdominal pain men, vaginal bleeding, weakness, fever, dyspnea, syncope, headache, dizziness, GI bleed, back pain, seizure, CVA, palpatations, mental health)? @ -Differential GI Bleed: Esophageal varices, aortoenteric fistula, Shelly-Nevarez, gastritis, peptic ulcer disease, diverticulosis, inflammatory bowel disease, hemorrhoids, fissure, c olitis, malignancy, Meckels diverticulum, this is not meant to be an all- inclusive list. EKG interpreted by me (3pts min.). @ -As above X-rays interpreted by me (1pt min.). @ -None done CT interpreted by me (1pt min.). @ -None done U/S interpreted by me (1pt. min.). @ -None done What testing was considered but not performed or refused? (CT, X-rays, U/S, labs)? Why? @ -None What meds were considered but not given or refused? Why? @ -None Did you discuss the management of the patient with other professionals (professionals i.e. , PA, WINDER HELPER, lab, RT, psych nurse, social work job titles, paint and table edger, te acher, consumer loan officer, vocational case manager)? Give summary @ -Marcel with transferring physician Dr. Lal Was smoking cessation discussed for >3mins.? @ -No Was critical care preformed (if so, how long)? @ -Yes, 35 minutes Were there social determinants of health that impacted care today? How? (Homelessness, low income, unemployed, alcoholism, drug addiction, transportation, low edu. Level, literacy, decrease access to med. care, usp, rehab)? @ -No Was there de-escalation of care discussed even if they declined (Discuss DNR or withdrawal of care, Hospice)? DNR status @ -No What co-morbidities impacted this encounter? (DM, HTN, Smoking, COPD, CAD, Cancer, CVA, ARF, Chemo, Hep., AIDS, mental health diagnosis, sleep apnea, morbid obesity)? @ -None Was patient admitted / discharged? Hospital course, mention meds given and route, prescriptions, significant lab abnormalities, going to OR and other pertinent info. @ -Transfer to outside facility [facility] Patient was seen and evaluated history is obtained from patient and her son at bedside. Patient with recurrent upper GI bleeds with 2 nondiagnostic endoscopies in the past year. Patient presenting with bright red emesis. On ar rival patient is diaphoretic and pale. Labs were obtained hemoglobin 7.5 given that she likely has an active bleed we will start transfusion. Patient care was discussed with the ER physician Dr. Lukasz herrera Eb who accepts the transfer for continuity of care. Undiagnosed new problem with uncertain prognosis? @ -No Drug Therapy requiring intensive monitoring for toxicity (Heparin, Nitro, Insuli n, Cardizem)? @ -No Were any procedures done? @ -No Diagnosis/symptom? @ -Upper GI bleeding Acute, or Chronic, or Acute on Chronic? @ -Acute Uncomplicated (without systemic symptoms) or Complicated (systemic symptoms)? @ -Complicated Side effects of treatment? @ -No Exacerbation, Progression, or Severe Exacerbation? @ -No Poses a threat to life or bodily function? How? (Chest pain, [place], MT, pneumonia, PE, COPD, DKA, ARF, appy, cholecystitis, CVA, Diverticulitis, Homicidal, Suicidal, threat to staff... and all critical care pts) @ -Yes, patient's becoming symptomatically anemic - Lab Data Result diagrams: 07/25/23 22:36 07/25/23 22:36 Lab Results 07/25/23 07/25/23 07/25/23 Range/Units 22:25 22:30 22:36 WBC 5.5 (3.8-10.6) k/uL RBC 2.39 L (3.80-5.40) m/uL Hgb 7.5 L (11.4-16.0) gm/dL Hct 24.0 L (34.0-46.0) % MCV 100.1 H (80.0-100.0) fL MCH 31.1 (25.0-35.0) pg MCHC 31.1 (31.0-37.0) g/dL RDW 16.1 H (11.5-15.5) % Plt Count 163 (150-450) k/uL MPV 8.2 Neutrophils % 50 % Lymphocytes % 36 % Monocytes % 8 % Eosinophils % 3 % Basophils % 1 % Neutrophils # 2.7 (1.3-7.7) k/uL Lymphocytes # 2.0 (1.0-4.8) k/uL Monocytes # 0.4 (0-1.0) k/uL Eosinophils # 0.2 (0-0.7) k/uL Basophils # 0.0 (0-0.2) k/uL Anisocytosis Slight Macrocytosis Slight PT (10.0-12.5) sec INR (<1.2) APTT (22.0-30.0) sec Sodium (137-145) mmol/L Potassium (3.5-5.1) mmol/L Chloride (98-107) mmol/L Carbon Dioxide (22-30) mmol/L Anion Gap mmol/L BUN (7-17) mg/dL Creatinine (0.52-1.04) mg/dL Est GFR (CKD-EPI)AfAm (>60 ml/min/1.73 sqM) Est GFR (CKD-EPI)NonAf (>60 ml/min/1.73 sqM) Glucose (74-99) mg/dL Plasma Lactic Acid Go (0.7-2.0) mmol/L Calcium (8.4-10.2) mg/dL Total Bilirubin (0.2-1.3) mg/dL AST (14-36) U/L ALT (4-34) U/L Alkaline Phosphatase (38-126) U/L Total Protein (6.3-8.2) g/dL Albumin (3.5-5.0) g/dL Blood Type O Positive Blood Type Confirm O Positive Blood Type Recheck No Previous Record Bld Type Recheck Status CABO Indicated Antibody Screen NEGATIVE Crossmatch See Detail Spec Expiration Date 07/28/2023 - 232907/25/23 07/25/23 07/25/23 Range/Units 22:36 22:36 22:36 WBC (3.8-10.6) k/uL RBC (3.80-5.40) m/uL Hgb (11.4-16.0) gm/dL Hct (34.0-46.0) % MCV (80.0-100.0) fL MCH (25.0-35.0) pg MCHC (31.0-37.0) g/dL RDW (11.5-15.5) % Plt Count (150-450) k/uL MPV Neutrophils % % Lymphocytes % % Monocytes % % Eosinophils % % Basophils % % Neutrophils # (1.3-7.7) k/uL Lymphocytes # (1.0-4.8) k/uL Monocytes # (0-1.0) k/uL Eosinophils # (0-0.7) k/uL Basophils # (0-0.2) k/uL Anisocytosis Macrocytosis PT 11.1 (10.0-12.5) sec INR 1.0 (<1.2) APTT 22.6 (22.0-30.0) sec Sodium 136 L (137-145) mmol/L Potassium 4.0 (3.5-5.1) mmol/L Chloride 110 H (98-107) mmol/L Carbon Dioxide 19 L (22-30) mmol/L Anion Gap 7 mmol/L BUN 48 H (7-17) mg/dL Creatinine 2.03 H (0.52-1.04) mg/dL Est GFR (CKD-EPI)AfAm 26 (>60 ml/min/1.73 sqM) Est GFR (CKD-EPI)NonAf 23 (>60 ml/min/1.73 sqM) Glucose 114 H (74-99) mg/dL Plasma Lactic Acid Go 1.5 (0.7-2.0) mmol/L Calcium 8.6 (8.4-10.2) mg/dL Total Bilirubin 0.7 (0.2-1.3) mg/dL AST 37 H (14-36) U/L ALT 17 (4-34) U/L Alkaline Phosphatase 154 H (38-126) U/L Total Protein 5.9 L (6.3-8.2) g/dL Albumin 2.9 L (3.5-5.0) g/dL Blood Type Blood Type Confirm Blood Type Recheck Bld Type Recheck Status Antibody Screen Crossmatch Spec Expiration Date Disposition Clinical Impression: Upper GI bleeding, Acute anemia, Chronic kidney disease Disposition: OTHER INSTITUTION NOT DEFINED Is patient prescribed a controlled substance at d/c from ED?: No Referrals: Ubaldo Hankins MD [Primary Care Provider] - 1-2 days - Out of Hospital Transfer - Req. Specs Out of Hospital Transfer - Requested Specifics: Other Emergency Center ([facility])
[2023-07-26 01:10] VITALS: RESP 17
[2023-07-26 02:15] VITALS: TEMP 98.2
[2023-07-26 03:07] VITALS: BP 121/66; PULSE 79
== END 2023-07-26 03:28 | disposition other institution (70) ==
LOC: EC 22:03
DX: K92.2 Gastrointestinal hemorrhage, unspecified (principal); D62 Acute posthemorrhagic anemia; N18.9 Chronic kidney disease, unspecified; Z88.5 Allergy status to narcotic agent; Z88.6 Allergy status to analgesic agent; Z87.891 Personal history of nicotine dependence; Z90.49 Acquired absence of other specified parts of digestive tract
CPT/HCPCS: 36430 ×2; 96361 ×2; 96374 ×2; 96375 ×2; 99285 ×2; 36415; 86900; 86901; 80053; 83605; 85025; 85610; 85730; 86850; 86920; P9016; J2405; C9113